=== PATIENT | male | born 1970 | race Caucasian/White ===

== ENCOUNTER 2018-02-28 09:12 | Day surgery (SDC) | payer BC ==
[~2018-02-28 09:12] MED LIST: Bupivacaine 0.5%/EPINEPHrine 1:200,000 50 ML MDV ONE; Meropenem 500 MG SDV ONE
[2018-02-28] MEDS ORDERED: Acetaminophen 500 MG Tab PO ONE (09:45)
[2018-02-28] MEDS ORDERED: Dextrose 5%-Lactated Ringers 1,000 ML IV SCH (09:45)
[2018-02-28] MEDS ORDERED: ceFAZolin 2 GM in Sodium Chloride 0.9% 50 ML IV ONE (09:45)
[2018-02-28] MEDS ORDERED: Neostigmine Methylsulfate 1 MG/ML 5 ML Syringe ONE ×2 (09:53→10:19)
[2018-02-28] MEDS ORDERED: Dexamethasone 4 MG/ML SDV ONE ×2 (09:53→10:19)
[2018-02-28] MEDS ORDERED: Ondansetron 4 MG/2 ML SDV ONE ×2 (09:53→10:19)
[2018-02-28] MEDS ORDERED: Rocuronium 50 MG/5 ML Vial ONE ×2 (09:53→10:19)
[2018-02-28] MEDS ORDERED: Propofol 200 MG/20 ML SDV ONE ×2 (09:53→10:19)
[2018-02-28] MEDS ORDERED: fentaNYL 250 MCG/5 ML SDV ONE ×3 (09:53→10:48)
[2018-02-28] MEDS ORDERED: Glycopyrrolate 0.2 MG/ML 5 ML MDV ONE ×2 (09:53→10:19)
[2018-02-28] MEDS ORDERED: Midazolam 1 MG/ML 2 ML SDV ONE (09:53)
[2018-02-28] MEDS ORDERED: Bupivacaine 0.5%/EPINEPHrine 1:200,000 50 ML MDV ONE (10:15)
[2018-02-28] MEDS ORDERED: Succinylcholine 200 MG/10 ML MDV ONE (10:19)
[2018-02-28] MEDS ORDERED: Ropivacaine 45 ML, Dexamethasone 8 MG, EPINEPHrine 0.4 MG, Sodium Chloride 0.9% 32.6 ML NERVRT SCH ×4 (11:00)
[2018-02-28] MEDS ORDERED: Acetaminophen/oxyCODONE 325-5 MG Tab PO PRN (12:24)
--- NOTE | 2018-03-08 13:34 | OR ---
DATE OF PROCEDURE: 02/28/2018 PREOPERATIVE DIAGNOSIS: Incarcerated umbilical hernia. POSTOPERATIVE DIAGNOSES: 1. Incarcerated umbilical hernia. 2. Lipomatous peritoneal nodule. 3. Extensive intraabdominal adhesions. OPERATIVE PROCEDURES: Diagnostic laparoscopy with; 1. Repair of incarcerated umbilical hernia with mesh (37553). 2. Excision of lipomatous peritoneal nodule (10430). 3. Placement of Vicryl mesh to displace pelvic and abdominal stanton from underlying viscera to limit recurrent adhesion formation (72441). ANESTHESIA: General. INDICATION FOR PROCEDURE: This is a 47-year-old presenting with an increasingly symptomatic nonreducible incisional hernia. Plan is to proceed with repair of this with laparoscopic approach with mesh. Potential risks including bleeding, infection, injury to underlying viscera, problems with the mesh becoming infected or the hernia recurring were all reviewed, and the patient wishes to proceed. DETAILS OF PROCEDURE: The patient was taken to the operating room and after general endotracheal anesthesia was induced, a Sylvester catheter was inserted, and the abdomen was prepped and draped. In the left lateral abdomen, a transverse incision was made, and the peritoneal cavity entered under direct vision with an Optiview trocar and inflated to 15 mmHg pressure of CO2. Bilateral midabdominal transversus abdominis plane blocks were then placed with direct visualization of the needles were in the correct plane and injection of the standard solution bilaterally. The patient then had 2 additional trocars, one in the left lower quadrant and in the left upper quadrant, placed and the area was examined. The patient was noted to have some incarcerated omentum within the hernia. There was also quite a bit in the way of adhesions between the omentum, one point of small bowel and the anterior abdominal wall. These were taken down with a combination of Harmonic scalpel and sharp dissection. The hernia contents were then reduced. The defect measured around 3 to 4 cm. Inferior to the hernia, the patient was noted to have a 6.5-cm linear peritoneal nodule. This appeared to be primary lipomatous, but for diagnostic purposes, it was excised. This was excised flush with the abdominal wall fascia and delivered from the field for histologic evaluation. At this point, a Ventralight ST mesh measuring 15 x 20 cm was selected. At the 2 ends of the long axis, sutures were placed on the polypropylene side of the mesh. The mesh was soaked in antibiotic-containing saline solution and placed in an intraperitoneal location, at a point slightly inferior to the umbilical hernia. A suture passer was then placed and the catheter pulled up and the mesh pulled up against the abdominal wall. The 2 ends of the mesh were also then pulled up against the abdominal wall with the suture passer as well. The balloon was then deflated, bringing the balloon up against the abdominal wall. The mesh was then circumferentially affixed with absorbable tacking screws, one on the peripheral edge of the mesh and 1 cm or so inside the edge of the mesh. The balloon catheter was then deflated and removed. Good fixation of the mesh was confirmed circumferentially with a wide margin from the hernia site. With the mesh present as well as the previous adhesions, the patient was felt to be at risk for significant adhesion formation between the viscera, the mesh, abdominal and pelvic stanton. Given this, a 12-inch segment of Vicryl mesh was placed from behind the urinary bladder up along the pelvic sidewalls and then underneath the abdominal wall including underneath the mesh. At this point, the trocars were sequentially removed. The fascia at the 12 mm site was closed with 0 Vicryl stitch, and the skin at each of the incision with 4- 0 Vicryl skin stitch. Dressing was applied. The patient was taken to the recovery room in a satisfactory condition. Faisal Young MD /[id number]
== END 2018-02-28 13:30 | disposition home or self-care (01) ==
LOC: JP.SDS 09:12
PROVIDERS: ATTEND Surgery
DX: K42.0 Umbilical hernia with obstruction, without gangrene (principal); R19.09 Other intra-abdominal and pelvic swelling, mass and lump; F17.200 Nicotine dependence, unspecified, uncomplicated; Z88.0 Allergy status to penicillin
CPT/HCPCS: 49653; 88302; 88304; A9270; C1781; J0171; J0330; J0690; J1100; J2020; J2405; J2704; J2710; J2795; J3010; J3490; J7042; J7050; J2185; J2250

== ENCOUNTER 2024-02-09 15:13 | Inpatient (IN) | payer BC ==
[2024-02-09 16:15] LABS: BASOPHILS ABSOLUTE AUTO 0.03 K/uL (0.00-0.10); BASOPHILS PERCENT AUTO 0.2 % (0.1-1.3); EOSINOPHILS ABSOLUTE AUTO 0.11 K/uL (0.00-0.40); EOSINOPHILS PERCENT AUTO 0.9 % (0.0-5.4); HEMATOCRIT 48.1 % (38.4-49.7); HEMOGLOBIN 16.9 g/dL (12.9-16.9); IMMATURE GRAN ABSOLUTE AUTO 0.04 K/uL (0.00-0.23); IMMATURE GRAN PERCENT AUTO 0.3 % (0.0-0.7); LYMPHOCYTES ABSOLUTE AUTO 1.58 K/uL (0.8-3.3); LYMPHOCYTES PERCENT AUTO 12.3 % (11.4-47.7); MEAN CORPUSCULAR HGB CONC 35.1 g/dL (31.6-35.5); MEAN CORPUSCULAR VOLUME 85.3 fL (81.4-99.0); MONOCYTES ABSOLUTE AUTO 1.07 K/uL (0.20-0.90); MONOCYTES PERCENT AUTO 8.3 % (3.3-12.6); NEUTROPHILS ABSOLUTE AUTO 10.06 K/uL (1.0-7.6); PLATELET COUNT,PLT 225 K/uL (130-375); RED BLOOD CELL COUNT 5.64 M/uL (4.14-5.76); WHITE BLOOD CELL COUNT,WBC 12.9 K/uL (3.2-11.0)
[2024-02-09] MEDS ORDERED: Sodium Chloride 0.9% 250 ML IV SCH (16:15)
[2024-02-09] MEDS: Iopamidol 612 MG/ML 100 ML Bottle IV PRN (16:23)
[2024-02-09] MEDS: Sodium Chloride 0.9% 10 ML Syringe FLUSH PRN (16:23)
[2024-02-09] MEDS: Sodium Chloride 0.9% 80 ML IV ONE (16:23)
[2024-02-09] MEDS: Morphine 2 MG/ML SYRINGE IVPUSH ONE (16:28)
[2024-02-09 16:33] LABS: A/G RATIO 1.1 (1.2-2.2); ALANINE AMINOTRANSFERASE,ALT 37 U/L (12-78); ALBUMIN 3.8 g/dL (3.4-5.0); ALKALINE PHOSPHATASE 90 U/L (46-116); ASPARTATE AMNIOTRANSFERASE,AST 17 U/L (15-37); BILIRUBIN TOTAL 0.7 mg/dL (0.2-1.0); BLOOD UREA NITROGEN,BUN 26 mg/dL (7-18); C-REACTIVE PROTEIN 0.86 mg/dL (<0.50); CALCIUM 9.7 mg/dL (8.5-10.1); CARBON DIOXIDE,CO2 27 mmol/L (21-32); CHLORIDE,CL 100 mmol/L (100-108); CREATININE 1.1 mg/dL (0.8-1.3); ESTIMATED GFR 81 mL/min (>60); GLUCOSE RANDOM 124 mg/dL (74-106); POTASSIUM,K 4.2 mmol/L (3.6-5.2); PROTEIN TOTAL,TP 7.2 g/dL (6.4-8.2); SODIUM,NA 138 mmol/L (140-148)
[2024-02-09 16:34] LABS: ANION GAP 15.2 mmol/L (5.0-14.0)
[2024-02-09] MEDS: Sodium Chloride 0.9% 1,000 ML IV SCH (16:35)
[2024-02-09] MEDS: fentaNYL 50 MCG/ML SDV IVPUSH ONE ×2 (17:55→18:45)
[2024-02-09] MEDS: Heparin Sodium 5,000 Units/ML Vial SUBCUT ONE (18:48)
[2024-02-09] MEDS: cefOXitin 2 GM in Sodium Chloride 0.9% 50 ML IV ONE (18:50)
[2024-02-09] MEDS ORDERED: Dexamethasone 4 MG/ML SDV ONE (19:04)
[2024-02-09] MEDS ORDERED: Propofol 200 MG/20 ML SDV ONE (19:04)
[2024-02-09] MEDS ORDERED: Ondansetron 4 MG/2 ML SDV ONE (19:04)
[2024-02-09] MEDS ORDERED: fentaNYL 250 MCG/5 ML SDV ONE (19:04)
[2024-02-09] MEDS ORDERED: Neostigmine Methylsulfate 10 MG/10 ML MDV ONE (19:04)
[2024-02-09] MEDS ORDERED: Succinylcholine 200 MG/10 ML MDV ONE (19:04)
[2024-02-09] MEDS ORDERED: Rocuronium 50 MG/5 ML Vial ONE ×2 (19:04→19:59)
[2024-02-09] MEDS ORDERED: Glycopyrrolate 0.2 MG/ML 5 ML MDV ONE (19:04)
[2024-02-09] MEDS ORDERED: Lactated Ringers 1,000 ML ONE (19:30)
[2024-02-09] MEDS: Bupivacaine 0.5%/EPINEPHrine 1:200,000 50 ML MDV ONE (20:02)
[2024-02-09] MEDS ORDERED: fentaNYL 100 MCG/2 ML SDV ONE (20:42)
[2024-02-09] MEDS ORDERED: Ketorolac 30 MG/ML SDV ONE (21:01)
[2024-02-09] MEDS: Morphine 2 MG/ML SYRINGE IVPUSH PRN (22:16)
[2024-02-09] MEDS: Heparin Sodium 5,000 Units/ML Vial SUBCUT SCH ×2 (22:17→22:45)
[2024-02-09] MEDS: Dextrose 5%-Lactated Ringers 1,000 ML IV SCH (22:25)
[2024-02-09 23:44] LABS: APPEARANCE,URINE CLEAR (CLEAR); BILIRUBIN,URINE SMALL (NEGATIVE); COLOR,URINE YELLOW (YELLOW); GLUCOSE,URINE NEGATIVE (NEGATIVE); KETONES,URINE NEGATIVE (NEGATIVE); LEUKOCYTE ESTERASE,URINE NEGATIVE (NEGATIVE); NITRITE,URINE NEGATIVE (NEGATIVE); OCCULT BLOOD,URINE MODERATE (NEGATIVE); PROTEIN,URINE 100 mg/dL (NEGATIVE); UROBILINOGEN,URINE 0.2 EU/dL (0.2-1.0)
[2024-02-09 23:53] LABS: AMORPHOUS SEDIMENT,URINE NOT SEEN; BACTERIA,URINE FEW; EPITHELIAL CELLS,URINE FEW; MUCUS,URINE FEW; WBC,URINE 0-5 (0-5)
[2024-02-10] MEDS: Acetaminophen 325 MG Tab PO PRN (03:10)
[2024-02-10] MEDS: Ondansetron 4 MG/2 ML SDV IVPUSH PRN (04:34)
[2024-02-10 04:40] LABS: BASOPHILS ABSOLUTE AUTO 0.03 K/uL (0.00-0.10); BASOPHILS PERCENT AUTO 0.2 % (0.1-1.3); HEMATOCRIT 46.5 % (38.4-49.7); HEMOGLOBIN 16.1 g/dL (12.9-16.9); IMMATURE GRAN ABSOLUTE AUTO 0.05 K/uL (0.00-0.23); IMMATURE GRAN PERCENT AUTO 0.3 % (0.0-0.7); LYMPHOCYTES ABSOLUTE AUTO 0.88 K/uL (0.8-3.3); LYMPHOCYTES PERCENT AUTO 5.8 % (11.4-47.7); MEAN CORPUSCULAR HEMOGLOBIN 30.1 pg (31.6-35.5); MEAN CORPUSCULAR HGB CONC 34.6 g/dL (31.6-35.5); MEAN CORPUSCULAR VOLUME 87.1 fL (81.4-99.0); MONOCYTES PERCENT AUTO 12.6 % (3.3-12.6); NEUTROPHILS ABSOLUTE AUTO 12.25 K/uL (1.0-7.6); NEUTROPHILS PERCENT AUTO 81.1 % (40.0-78.1); PLATELET COUNT,PLT 246 K/uL (130-375); RED BLOOD CELL COUNT 5.34 M/uL (4.14-5.76); WHITE BLOOD CELL COUNT,WBC 15.1 K/uL (3.2-11.0)
[2024-02-10] MEDS: Acetaminophen/oxyCODONE 325-5 MG Tab PO PRN (08:41)
[2024-02-10] MEDS: Ketorolac 30 MG/ML SDV IVPUSH PRN (10:50)
[2024-02-11] MEDS: Dextrose 5%-Lactated Ringers 1,000 ML IV SCH (17:47)
[2024-02-12 05:21] LABS: HEMATOCRIT 40.3 % (38.4-49.7); HEMOGLOBIN 13.7 g/dL (12.9-16.9); MEAN CORPUSCULAR HEMOGLOBIN 29.9 pg (31.6-35.5); RED BLOOD CELL COUNT 4.58 M/uL (4.14-5.76)
[2024-02-12 05:39] LABS: ANION GAP 12.1 mmol/L (5.0-14.0); CREATININE 1.2 mg/dL (0.8-1.3); EST CRCL DRUG DOSING (CG) 79.94 mL/min; POTASSIUM,K 4.1 mmol/L (3.6-5.2)
[2024-02-12] MEDS: Magnesium Hydroxide 400 MG/5 ML Susp 30 ML Cup PO ONE (09:03)
[2024-02-12] MEDS: Calcium Carbonate 500 MG Tab.Chew PO PRN (15:38)
[2024-02-12] MEDS: Benzocaine/Cetylpyridinium/Menthol Lozenge MUCMEM PRN (20:32)
[2024-02-13] MEDS: Phenol/Sodium Phenolate Spray 180 ML Bottle MUCMEM PRN (14:55)
[2024-02-13] MEDS: Dextrose 5%-Lactated Ringers 1,000 ML IV SCH (22:23)
[2024-02-14 05:48] LABS: CALCIUM 9.4 mg/dL (8.5-10.1); CREATININE 1.5 mg/dL (0.8-1.3); EST CRCL DRUG DOSING (CG) 63.95 mL/min; MAGNESIUM 2.5 mg/dL (1.8-2.4); POTASSIUM,K 3.3 mmol/L (3.6-5.2)
[2024-02-14 05:59] LABS: ANION GAP 9.3 mmol/L (5.0-14.0)
[2024-02-14] MEDS: Potassium Chloride 10 MEQ in Premix Bag 1 BAG IV SCH ×2 (08:46→15:36)
[2024-02-14] MEDS: Lactated Ringers 1,000 ML IV SCH (15:35)
[2024-02-14 17:31] LABS: CALCIUM 9.3 mg/dL (8.5-10.1); CREATININE 1.5 mg/dL (0.8-1.3); EST CRCL DRUG DOSING (CG) 64.04 mL/min; POTASSIUM,K 3.7 mmol/L (3.6-5.2)
[2024-02-14 17:32] LABS: ANION GAP 9.7 mmol/L (5.0-14.0)
[2024-02-15 06:33] LABS: ANION GAP 10.4 mmol/L (5.0-14.0); CALCIUM 9.2 mg/dL (8.5-10.1); CREATININE 1.6 mg/dL (0.8-1.3); EST CRCL DRUG DOSING (CG) 60.03 mL/min; POTASSIUM,K 3.4 mmol/L (3.6-5.2)
[2024-02-15] MEDS: Potassium Chloride 10 MEQ in Premix Bag 1 BAG IV SCH (08:59)
[2024-02-15] MEDS: Potassium Chloride 20 MEQ Tab.ER PO ONE (13:29)
[2024-02-16 06:02] LABS: ANION GAP 7.2 mmol/L (5.0-14.0); CALCIUM 9.4 mg/dL (8.5-10.1); CREATININE 1.4 mg/dL (0.8-1.3); EST CRCL DRUG DOSING (CG) 68.61 mL/min; POTASSIUM,K 4.1 mmol/L (3.6-5.2)
== END 2024-02-17 12:30 | disposition home or self-care (01) | DRG 224 ==
LOC: JP.ED 15:13 → JP.SDS 18:35 → JP.MS 19:18
PROVIDERS: ADMIT Internal Medicine; ATTEND Surgery
PROC: 0DN80ZZ Release Small Intestine, Open Approach (ICD-10-PCS; principal; 2024-02-09 19:24)
DX: K56.50 Intestinal adhesions [bands], unspecified as to partial versus complete obstruction (principal); K91.89 Other postprocedural complications and disorders of digestive system; K56.7 Ileus, unspecified; J45.909 Unspecified asthma, uncomplicated; E66.9 Obesity, unspecified; Z88.0 Allergy status to penicillin; Z68.33 Body mass index [BMI] 33.0-33.9, adult; Y83.8 Other surgical procedures as the cause of abnormal reaction of the patient, or of later complication, without mention of misadventure at the time of the procedure
CPT/HCPCS: 00790-QZ; 36415; 71045; 71045-26; 74019; 74019-26; 74021; 74021-26; 74177; 74177-26; 80048; 80053; 81001; 83605; 83690; 83735; 85025; 85027; 86140; 96361; 96365; 96372; 96375; 96376; 99285; 99285-25; A9270-GY; J0330; J0694; J1100; J1596; J1644; J1885; J2270; J2405; J2704; J2710; J3010; J3480; J3490; J7030; J7120; J7121; Q9967